=== PATIENT | female | born 1970 | race Caucasian/White ===

== ENCOUNTER 2016-03-06 16:52 | Emergency (ER) | payer OTHER ==
[2016-03-06] MEDS ORDERED: 0.9 % SODIUM CHLORIDE 1,000 ML IV ONE ×2 (17:10→18:14)
[2016-03-06] MEDS ORDERED: ONDANSETRON HCL/PF 4 MG/ 2ML VIAL IVP ONE ×2 (17:10→18:14)
[2016-03-06 17:30] LABS: BASOPHILS % 0.4 (0.0-1.5); EOSINOPHILS % 2.3 % (0.0-6.8); LYMPHOCYTES # 1.9 # k/uL (0.6-4.0); MEAN CORPUSCULAR HEMOGLOBIN 30.7 pg (28.0-34.0); MONOCYTES # 0.4 # k/uL (0.0-0.9); MONOCYTES % 5.4 % (0.0-11.0); NEUTROPHILS # 4.1 # k/uL (1.4-7.7)
--- NOTE | 2016-03-06 17:37 | ED Physician Documentation ---
Nausea/Vomiting/Diarrhea - HISTORIAN Historian: patient - HPI Chief Complaint: Nausea,Vomiting,Diarrhea Onset: days ago (3) Duration: waxing, waning Timing: still present Context: denies: out of country travel, bad food, recent trauma Severity: severe Further Comments: yes (45 year old female patient presents with epigastric and RUQ pain for the past 3 days with nausea and vomiting. Denies fever or diarrhea. States her pain started after eating [place] food on Sunday.) - Associated Symptoms Vomiting: frequent Abdominal Pain: severe (7-8/10), epigastric, RUQ - ROS CONST: none CVS/RESP: denies: chest pain, shortness of breath, cough, dry cough, non- productive cough, productive cough, bloody cough GI/: none EYES/ENT: none MS/SKIN/LYMPH: denies: joint pain, leg swelling, rash NEURO/PSYCH: none - PAST HX Past History: denies: none Other History: other (asthma, COPD, headaches) Surgeries/Procedures: appendectomy, hysterectomy, other (Right knee x 4 arthroscopy, breast augmentation, wisdom teeth extraction. ) Allergies/Adverse Reactions: Allergies Allergy/AdvReac Type Severity Reaction Status Date / Time ketorolac tromethamine Allergy Severe Anaphylaxis Verified 03/06/16 17:38 [From Toradol] Penicillins Allergy Severe Anaphylaxis Verified 03/06/16 17:38 aspirin Allergy Intermediate Rash Verified 03/06/16 17:38 naproxen [From Naprosyn] AdvReac Unknown Vomiting Verified 03/06/16 17:38 Home Medications: Ambulatory Orders Medication Instructions Recorded Chlorpromazine HCl 25 mg PO D 07/08/15 Estradiol [Estrace] 0.5 mg PO D 07/08/15 Tizanidine HCl [Zanaflex] 4 mg PO QID #20 capsule 12/09/15 - SOCIAL HX Smoking History: cigarettes - FAMILY HX Family History: denies: none - VITAL SIGNS Vital Signs: Vital Signs Temp Pulse Resp BP Pulse Ox 97.8 F 100 H 18 140/75 97 03/06/16 16:55 03/06/16 16:55 03/06/16 16:55 03/06/16 16:55 03/06/16 16:55 - REVIEWED ASSESSMENTS Nursing Assessment Reviewed: Yes Vitals Reviewed: Yes Progress - Progress Progress: Lipase send out, will check amylase. 1815 Reviewed xray and lab results with patient, recommended outpatient US to evaluate gallbladder. ED Results Lab/Radiology - Lab Results Lab Results: Lab Results 03/06/16 03/06/16 03/06/16 17:25 17:25 17:25 WBC 6.70 K/ul K/ul (4.00-12.00) RBC 5.08 M/ul M/ul (3.90-5.20) Hgb 15.6 g/dL g/dL (12.0-16.0) Hct 45.5 % % (34.5-46.5) MCV 89.6 fl fl (80.0-100.0) MCH 30.7 pg pg (28.0-34.0) MCHC 34.2 g/dL g/dL (30.0-36.0) RDW 13.2 % % (11.3-14.3) Plt Count 236 K/mm3 K/mm3 (130-400) Neut % (Auto) 61.7 % % (39.0-79.0) Lymph % (Auto) 28.1 % % (16.0-50.0) Kane % (Auto) 5.4 % % (0.0-11.0) Eos % (Auto) 2.3 % % (0.0-6.8) Baso % (Auto) 0.4 (0.0-1.5) Neut # 4.1 # k/uL # k/uL (1.4-7.7) Lymph # 1.9 # k/uL # k/uL (0.6-4.0) Kane # 0.4 # k/uL # k/uL (0.0-0.9) Eos # 0.2 # k/uL # k/uL (0.0-0.6) Baso # 0.0 # k/uL # k/uL (0.0-0.5) Reactive Lymphs % 2.1 % % (0.0-5.0) Reactive Lymphs # 0.1 # k/uL # k/uL (0.0-0.8) Sodium 138 mmol/L mmol/L (136-145) Potassium 3.9 mmol/L mmol/L (3.5-5.0) Chloride 108 mmol/L mmol/L (98-110) Carbon Dioxide 26 mmol/L mmol/L (20-32) BUN 14 mg/dL mg/dL (10-26) Creatinine 0.6 mg/dL mg/dL (0.4-1.5) Estimated Creat Clear 201 Est GFR ( Amer) > 60 (60 - ) Est GFR (Non-Af Amer) > 60 (60 - ) Glucose 141 mg/dL H mg/dL (70-99) Calcium 9.3 mg/dL mg/dL (8.5-10.5) Total Bilirubin 0.4 mg/dL mg/dL (0.2-1.2) AST 32 U/L U/L (0-41) ALT 37 U/L U/L (0-45) Alkaline Phosphatase 111 U/L U/L (46-116) Total Protein 7.7 g/dL g/dL (6.0-8.5) Albumin 5.0 g/dL g/dL (3.0-5.5) Amylase 29 U/L U/L (20-104) - Orders Orders: ED Orders Category Date Time Status Place Saline Lock/IV NOW Care 03/06/16 17:[address] Saline Lock/IV NOW Care 03/06/16 18:14 Inactive AMYLASE Stat Lab 03/06/16 17:25 Completed CBC/PLATELET/DIFF Stat Lab 03/06/16 17:25 Completed CMP Stat Lab 03/06/16 17:25 Completed LIPASE Stat Lab 03/06/16 17:25 Received UA W/MICRO IF INDICATED Stat Lab 03/06/16 17:10 Ordered 0.9 % Sodium Chloride [Normal Saline] 1,000 ml Med 03/06/16 17:10 Discontinued IV NOW 0.9 % Sodium Chloride [Normal Saline] 1,000 ml Med 03/06/16 18:14 Discontinued IV NOW Morphine Sulfate [DepoDUR] Med 03/06/16 17:40 Discontinued 4 mg IVP NOW ONE Ondansetron HCl/Pf [Zofran 4 mg/2 ml] Med 03/06/16 17:10 Discontinued 4 mg IVP NOW ONE Ondansetron HCl/Pf [Zofran 4 mg/2 ml] Med 03/06/16 18:14 Discontinued 4 mg IVP NOW ONE Nausea Physical Exam - EXAM General Appearance: moderate distress EENT: eye inspection normal, no signs of dehydration, CHARLY Respiratory: no resp distress, chest non-tender, breath sounds normal CVS: reg rate & rhythm, heart sounds normal, equal pulses, no murmur, no gallop , PMI nml, no JVD, no friction rub, 24 Abdomen: non-tender, no organomegaly, tenderness (RUQ and epigastric tenderness to palpation. + Gillespie's), guarding. No: McBurney's point tender Skin: normal color, warm/dry, NR, INT, PAL, DR Extremities: non-tender, normal range of motion, no evidence of injury, no edema , J, OFFICE SECRETARY Neuro/Psych: oriented X3, CN's nml as tested, motor nml, sensation nml, mood/ affect nml Discharge Clincal Impression: RUQ pain, Epigastric abdominal pain Referrals: Seema Beckwith MD [Primary Care Provider] - 2 Days Additional Instructions: Diet: Clear liquids Sprite/7-up Juices apple, white grape Gatorade/Powerade Jello Popsicles When tolerating clear liquids, advance to bland diet - such as crackers , rice, bananas or toast. Then [place] diet until results of US are obtained. Return to the emergency department or call your doctor, if you are having severe abdominal pain, fever >101.0, or if there is blood in the vomit or diarrhea, or you cannot keep down liquids or solid food. Fever: Use Tylenol or Ibuprofen as needed per package directions Tylenol 500mg po q4h prn pain Ibuprofen 800mg po TID prn pain - do not take for more than 4 days. Home Medications: Ambulatory Orders Chlorpromazine HCl 25 mg PO D 07/08/15 Estradiol [Estrace] 0.5 mg PO D 07/08/15 Tizanidine HCl [Zanaflex] 4 mg PO QID #20 capsule 12/09/15 Condition: Stable Disposition: 01 HOME, SELF-CARE Decision to Admit: NO Decision Time: 18:20
[2016-03-06] MEDS ORDERED: MORPHINE SULFATE 4 MG/ML DISP.SYRIN IVP ONE (17:40)
[2016-03-06 17:47] LABS: eGFR (African) > 60; eGFR (Non-African) > 60
[2016-03-06 19:50] VITALS: BP 116/60
[2016-03-07 16:11] LABS: LIPASE 30 U/L (13-60)
== END 2016-03-06 18:57 | disposition home or self-care (01) ==
LOC: ED 16:52
DX: R10.9 Unspecified abdominal pain (principal)
CPT/HCPCS: 80053; 82150; 83690; 85025; J2270; J2405; J7030; 96374; 96375; 96376; 99283; S1016

== ENCOUNTER 2016-03-26 14:48 | Emergency (ER) | payer SELFPAY ==
--- NOTE | 2016-03-26 14:55 | ED Physician Documentation ---
General Adult - HISTORIAN Historian: patient - HPI Stated Complaint: wheezing Chief Complaint: General Adult Onset: hours Timing: still present Severity: moderate Further Comments: yes (Pt is a 45 yo female with sore throat and cough that began yesterday. No fever. Pt has hx asthma/copd. Pt used Albuterol at home but without much improvement.) - ROS CONST: other (malaise) EYES/ENT: sore throat CVS/RESP: shortness of breath, cough GI/: none MS/SKIN/LYMPH: none - PAST HX Past History: asthma, COPD Surgeries/Procedures: cholecystectomy, other (appendectomy) Allergies/Adverse Reactions: Allergies Allergy/AdvReac Type Severity Reaction Status Date / Time ketorolac tromethamine Allergy Severe Anaphylaxis Verified 03/26/16 15:06 [From Toradol] Penicillins Allergy Severe Anaphylaxis Verified 03/26/16 15:06 aspirin Allergy Intermediate Rash Verified 03/26/16 15:06 naproxen [From Naprosyn] AdvReac Unknown Vomiting Verified 03/26/16 15:06 Home Medications: Ambulatory Orders Medication Instructions Recorded Chlorpromazine HCl 25 mg PO D 07/08/15 Estradiol [Estrace] 0.5 mg PO D 07/08/15 Tizanidine HCl [Zanaflex] 4 mg PO QID #20 capsule 12/09/15 Promethazine HCl [Phenergan] 25 mg PO Q8H PRN #30 tablet 03/06/16 - SOCIAL HX Smoking History: cigarettes - FAMILY HX Family History: No - VITAL SIGNS Vital Signs: Vital Signs Temp Pulse Resp BP Pulse Ox 116/60 03/06/16 19:47 - REVIEWED ASSESSMENTS Nursing Assessment Reviewed: Yes Vitals Reviewed: Yes Progress - Progress Progress: Solu-medrol 125 mg IM in ER Duoneb HFN in ER improved Continue Albuterol MDI as directed. Rx Prednisone 50 mg. Take one daily for 5 days. Start on 03/27/16. Rx Z-taylor. Use as directed on package. General Adult Physical Exam - PHYSICAL EXAM GENERAL APPEARANCE: mild distress EENT: pharyngeal erythema NECK: normal inspection, supple RESPIRATORY: wheezes CVS: reg rate & rhythm, heart sounds normal ABDOMEN: soft, no organomegaly, normal bowel sounds BACK: normal inspection SKIN: warm/dry, normal color EXTREMITIES: non-tender, normal range of motion, no evidence of injury, no edema NEURO: oriented X3 Discharge Clincal Impression: Asthma Pharyngitis Qualifiers: Pharyngitis/tonsillitis etiology: unspecified etiology Qualified Code(s): J02.9 - Acute pharyngitis, unspecified Referrals: Seema Beckwith MD [Primary Care Provider] - Additional Instructions: Continue Albuterol MDI as directed. Rx Prednisone 50 mg. Take one daily for 5 days. Start on 03/27/16. Rx Z-taylor. Use as directed on package. Home Medications: Ambulatory Orders Chlorpromazine HCl 25 mg PO D 07/08/15 Estradiol [Estrace] 0.5 mg PO D 07/08/15 Tizanidine HCl [Zanaflex] 4 mg PO QID #20 capsule 12/09/15 Promethazine HCl [Phenergan] 25 mg PO Q8H PRN #30 tablet 03/06/16 Condition: Good Disposition: 01 HOME, SELF-CARE Decision to Admit: NO Decision Time: 16:04
[2016-03-26] MEDS ORDERED: methylPREDNISolone SOD SUCC 125 MG/2 ML VIAL IM ONE (15:14)
[2016-03-26] MEDS ORDERED: IPRATROPIUM/ALBUTEROL SULFATE 3 ML AMPUL.NEB NEB ONE (15:14)
[2016-03-26 16:13] VITALS: BP 149/74
--- NOTE | 2016-03-26 16:25 | Diagnostic Imaging Report ---
[facility] [address] [facility].[address] [address] Report Submission Date: Mar 26, 2016 3:52:22 PM ACCOUNTING FILE CLERK Patient Study Name: PAIGE ZALDIVAR Date: Mar 26, 2016 3:42:07 PM ACCOUNTING FILE CLERK Modality Type: CR Gender: F Description: CHEST : 72 Institution: [facility] Physician: ZEB Neff, [place]. History: Shortness of breath. Findings: The heart size is normal. The lungs are clear. There is no pleural effusion or pneumothorax identified. The osseous structures are normal. Impression: 1. No acute pulmonary disease. Electronically signed on Mar 26, 2016 3:52:22 PM ACCOUNTING FILE CLERK by: Connor PHILLIPS
== END 2016-03-26 16:11 | disposition home or self-care (01) ==
LOC: ED 14:48
DX: J45.909 Unspecified asthma, uncomplicated (principal); F17.210 Nicotine dependence, cigarettes, uncomplicated
CPT/HCPCS: 71010; J2930; 87070; 87400; 87880; 94640; 96372; 99283

== ENCOUNTER 2016-03-28 09:26 | Emergency (ER) | payer SELFPAY ==
--- NOTE | 2016-03-28 09:57 | ED Physician Documentation ---
Dyspnea - HISTORIAN Historian: patient - HPI Chief Complaint: Wheezing Associated Symptoms: fever (felt hot). denies: chills Further Comments: yes - ROS CONST: no problems - PAST HX Lung Disease: COPD Cardiac Disease: none Surgeries/Procedures: appendectomy, hysterectomy, other (breast implants, right knee surgery) Allergies/Adverse Reactions: Allergies Allergy/AdvReac Type Severity Reaction Status Date / Time ketorolac tromethamine Allergy Severe Anaphylaxis Verified 03/28/16 10:47 [From Toradol] Penicillins Allergy Severe Anaphylaxis Verified 03/28/16 10:47 aspirin Allergy Intermediate Rash Verified 03/28/16 10:47 naproxen [From Naprosyn] AdvReac Unknown Vomiting Verified 03/28/16 10:47 Home Medications: Ambulatory Orders Medication Instructions Recorded Chlorpromazine HCl 25 mg PO D 07/08/15 Estradiol [Estrace] 0.5 mg PO D 07/08/15 Tizanidine HCl [Zanaflex] 4 mg PO QID #20 capsule 12/09/15 Promethazine HCl [Phenergan] 25 mg PO Q8H PRN #30 tablet 03/06/16 Albuterol Sulfate [Proair Hfa] 8.5 gm IH Q4 PRN #1 hfa.aer.ad 03/28/16 Azithromycin [Zithromax] 250 mg PO DIRECTED #6 tablet 03/28/16 Benzonatate [Tessalon] 100 mg PO TID PRN #15 capsule 03/28/16 Montelukast Sodium [Singulair] 10 mg PO D #30 tablet 03/28/16 - SOCIAL HX Smoking History: less than 1 pack/day Alcohol Use: none Drug Use: none - FAMILY HX Family History: none - VITAL SIGNS Vital Signs: Vital Signs Temp Pulse Resp BP Pulse Ox 149/74 03/26/16 16:12 Progress - Progress Progress: 10:45 Breathing improved. Moving air well ED Results Lab/Radiology - Radiology Radiology Impressions: chest x-ray, no acute finding. Dyspnea Physical Exam - EXAM General Appearance: alert, moderate distress EENT: no signs of dehydration. No: ENT inspection normal, pharynx normal, pharyngeal erythema, dry mucous membranes Neck: nml inspection. No: lymphadenopathy Respiratory: speaks full sentences, respiratory distress (seems to be having a lot of laryngeal wheezing, lungs do not sound to bad but hard to hear.), prolonged expirations, wheezes (best heard in larygnx area). No: retractions, rales, rhonchi CVS: reg. rate & rhythm, no murmur, no gallop, no friction rub, pulses full, pulses equal Skin: color nml, no rash Extremities: non-tender Neuro/Psych: mood/affect nml Discharge Clincal Impression: Bronchitis Prescriptions: Albuterol Sulfate [Proair Hfa] 8.5 gm IH Q4 PRN #1 hfa.aer.ad PRN Reason: DYSPNEA Montelukast Sodium [Singulair] 10 mg PO D #30 tablet Additional Instructions: Drink a lot of fluids. Take Tesselon Perles as needed for cough. Take Azithromycin as directed. If not better in 3-4 days to see your primary care provider. Home Medications: Ambulatory Orders Chlorpromazine HCl 25 mg PO D 07/08/15 Estradiol [Estrace] 0.5 mg PO D 07/08/15 Tizanidine HCl [Zanaflex] 4 mg PO QID #20 capsule 12/09/15 Promethazine HCl [Phenergan] 25 mg PO Q8H PRN #30 tablet 03/06/16 Albuterol Sulfate [Proair Hfa] 8.5 gm IH Q4 PRN #1 hfa.aer.ad 03/28/16 Azithromycin [Zithromax] 250 mg PO DIRECTED #6 tablet 03/28/16 Benzonatate [Tessalon] 100 mg PO TID PRN #15 capsule 03/28/16 Montelukast Sodium [Singulair] 10 mg PO D #30 tablet 03/28/16 Decision to Admit: NO Date of Decison to Admit: 03/28/16 Decision Time: 11:29
[2016-03-28] MEDS ORDERED: IPRATROPIUM/ALBUTEROL SULFATE 3 ML AMPUL.NEB NEB ONE ×2 (10:01)
[2016-03-28 10:47] LABS: BASOPHILS % 0.4 (0.0-1.5); EOSINOPHILS % 2.7 % (0.0-6.8); MEAN CORPUSCULAR HEMOGLOBIN 30.7 pg (28.0-34.0); MONOCYTES # 0.3 # k/uL (0.0-0.9); MONOCYTES % 3.7 % (0.0-11.0); NEUTROPHILS # 5.4 # k/uL (1.4-7.7)
[2016-03-28] MEDS ORDERED: methylPREDNISolone SOD SUCC 125 MG/2 ML VIAL IVP ONE (10:55)
--- NOTE | 2016-03-28 10:57 | Diagnostic Imaging Report ---
[facility] [address] [facility].[address] [address] Report Submission Date: Mar 28, 2016 10:55:27 AM SALES CLOSER Patient Study Name: PAGIE ZALDIVAR Date: Mar 28, 2016 10:21:43 AM SALES CLOSER Modality Type: CR Gender: F Description: CHEST : 72 Institution: [facility] Physician: TEO RHOADES 2 views of the chest History: Dyspnea and cough Findings: Comparison 03/26/2016 Heart is normal in size. There is no focal consolidation, pleural effusion or pneumothorax No acute osseous pathology Impression: No focal consolidation or pleural effusion Electronically signed on Mar 28, 2016 10:55:27 AM SALES CLOSER by: Leela PHILLIPS
[2016-03-28 11:08] LABS: eGFR (African) > 60; eGFR (Non-African) > 60
[2016-03-28 12:05] VITALS: BP 109/63
== END 2016-03-28 11:37 | disposition home or self-care (01) ==
LOC: ED 09:26
DX: J20.9 Acute bronchitis, unspecified (principal); F17.210 Nicotine dependence, cigarettes, uncomplicated
CPT/HCPCS: 71020; 80053; 85025; 99283; J2930

== ENCOUNTER 2016-04-24 00:42 | Emergency (ER) | payer SELFPAY ==
[2016-04-24] MEDS ORDERED: HYDROcodone /APAP 5/325 1 EACH TABLET PO ONE (01:03)
--- NOTE | 2016-04-24 01:11 | ED Physician Documentation ---
Sore Throat/Dental Pain - HPI Stated Complaint: left lower jaw pain Chief Complaint: Dental Pain - ROS CONST: no problems - PAST HX Past History: none Allergies/Adverse Reactions: Allergies Allergy/AdvReac Type Severity Reaction Status Date / Time ketorolac tromethamine Allergy Severe Anaphylaxis Verified 04/24/16 01:00 [From Toradol] Penicillins Allergy Severe Anaphylaxis Verified 04/24/16 01:00 aspirin Allergy Intermediate Rash Verified 04/24/16 01:00 naproxen [From Naprosyn] AdvReac Unknown Vomiting Verified 04/24/16 01:00 Home Medications: Ambulatory Orders Medication Instructions Recorded Estradiol [Estrace] 0.5 mg PO D 07/08/15 Tramadol HCl [Ultram] 50 mg PO Q4H PRN #18 tablet 04/24/16 - SOCIAL HX Smoking History: cigarettes - FAMILY HX Family History: No - VITAL SIGNS Vital Signs: Vital Signs Temp Pulse Resp BP Pulse Ox 98.6 F 109 H 16 173/97 99 04/24/16 00:43 04/24/16 00:43 04/24/16 00:43 04/24/16 00:43 04/24/16 00:43 - REVIEWED ASSESSMENTS Nursing Assessment Reviewed: Yes Vitals Reviewed: Yes ED Results Lab/Radiology - Orders Orders: ED Orders Category Date Time Status HYDROcodone /APAP 5/325 [[place] 5/325] Med 04/24/16 01:03 Once 2 each PO NOW ONE Dental Pain Physical Exam - EXAM General Appearance: alert, moderate distress Head/Neck: head nml inspection, trachea midline, other (left mandible with firm swelling. #21 broken, surrounding gingival erythema) Eyes: eyes nml inspection Mouth/Throat: lips nml, pharynx nml, voice nml, no drooling, no air way problems Ear/Nose: nml inspection Respiratory: no resp. distress Skin: warm/dry, normal color Neuro/Psych: No: weakness Discharge Clincal Impression: Pain due to dental caries Prescriptions: Tramadol HCl [Ultram] 50 mg PO Q4H PRN #18 tablet PRN Reason: Pain Referrals: Seema Beckwith MD [Primary Care Provider] - 2 Days Additional Instructions: Continue the Keflex. See the dentist as soon as possible. Home Medications: Ambulatory Orders Estradiol [Estrace] 0.5 mg PO D 07/08/15 Tramadol HCl [Ultram] 50 mg PO Q4H PRN #18 tablet 04/24/16 Condition: Fair Disposition: 01 HOME, SELF-CARE Decision to Admit: NO Decision Time: 01:03
[2016-04-24 03:01] VITALS: BP 166/91
== END 2016-04-24 02:50 | disposition home or self-care (01) ==
LOC: ED 00:42
DX: K02.9 Dental caries, unspecified (principal)
CPT/HCPCS: 99282; 99283; A9270-GY

== ENCOUNTER 2016-06-05 08:27 | Outpatient (CLI) | payer BC ==
--- NOTE | 2016-06-05 14:26 | Diagnostic Imaging Report ---
JAGUAR AUSTIN [facility] [address] [facility] [address] [address] Report Submission Date: Jun 05, 2016 1:44:31 PM CDT Patient Study Name: PAIGE ZALDIVAR Date: Jun 05, 2016 9:52:00 AM CDT Modality Type: US Gender: F Description: ABD [facility] : 72 Institution: [facility] Physician: JAGUAR AUSTIN - NEEL Ultrasound abdomen limited History: Postprandial pain and nausea Findings: Visualized portions of the pancreas are unremarkable. Moderately increased hepatic parenchymal echogenicity and decreased hepatic through transmission are observed. A 2.5 x 2.5 x 3.6 centimeter hyperechoic lateral segment left hepatic lesion may be present. Alternatively, this is a perihepatic lesion. The right kidney is unremarkable. The gallbladder is normal without stones, wall thickening, or distention. The common bile duct measures 5 mm in diameter and is obscured distally. Impression: 1. Moderate hepatic steatosis. 2. Unremarkable common bile duct and gallbladder. 3. Equivocal 3.6 cm hyperechoic left hepatic lesion. Recommend triple phase computed tomography of the abdomen for further evaluation. Electronically signed on Jun 05, 2016 1:44:31 PM CDT by: Sanya PHILLIPS
== END 2016-06-05 08:30 ==
LOC: RAD 08:27
PROVIDERS: ATTEND Family Medicine
DX: R10.11 Right upper quadrant pain (principal)
CPT/HCPCS: 76705

== ENCOUNTER 2016-09-03 17:40 | Emergency (ER) | payer SELFPAY ==
[2016-09-03] MEDS: IBUPROFEN 200 MG TABLET PO ONE (19:13)
[2016-09-03] MEDS: traMADol HCL 50 MG TABLET PO ONE (19:14)
[2016-09-03] MEDS: ORPHENADRINE CITRATE 100 MG TAB PO ONE (19:19)
[2016-09-03] MEDS ORDERED: ORPHENADRINE CITRATE 60 MG/2ML ONE (19:53)
[2016-09-03] MEDS: ORPHENADRINE CITRATE 60 MG/2ML IM ONE (20:05)
--- NOTE | 2016-09-03 20:08 | ED Physician Documentation ---
Fall - HISTORIAN Historian: patient - HPI Stated Complaint: low back pain after fall Chief Complaint: Fall Additional Information: tripped opver dog fell several flights stairs-severe low back pain Onset: today (1729) Where: home Context: tripped, lost balance r: moderate Associated Symptoms:: no loss of consciousness Location of Pain/Injury: denies: head, neck, upper back, mid back - ROS CONST: no problems NEURO: other (pos slr 15 deg) EYES/ENT: none CVS/RESP: none GI/: denies: nausea, vomiting - PAST HX Past History: asthma, COPD Allergies/Adverse Reactions: Allergies Allergy/AdvReac Type Severity Reaction Status Date / Time ketorolac tromethamine Allergy Severe Anaphylaxis Verified 09/03/16 18:59 [From Toradol] Penicillins Allergy Severe Anaphylaxis Verified 09/03/16 18:59 aspirin Allergy Intermediate Rash Verified 09/03/16 18:59 naproxen [From Naprosyn] AdvReac Unknown Vomiting Verified 09/03/16 18:59 Home Medications: Ambulatory Orders Medication Instructions Recorded Estradiol [Estrace] 0.5 mg PO D 07/08/15 Topiramate [Topamax] 09/03/16 - SOCIAL HX Smoking History: less than 1 pack/day Alcohol Use: none Drug Use: none - FAMILY HX Family History: no significant history - VITAL SIGNS Vital Signs: Vital Signs Temp Pulse Resp BP Pulse Ox 98 F 75 18 111/57 97 09/03/16 17:45 09/03/16 17:45 09/03/16 17:45 09/03/16 17:45 09/03/16 17:45 - REVIEWED ASSESSMENTS Nursing Assessment Reviewed: Yes Vitals Reviewed: Yes ED Results Lab/Radiology - Radiology Radiology Impressions: no fx - Orders Orders: ED Orders Category Date Time Status LUMBAR SPINE WITH OBLIQUES [L SPINE 4 VIEWS] [RAD] Stat Exams 09/03/16 Ordered Ibuprofen [Advil] Med 09/03/16 18:59 Once 600 mg PO NOW ONE Orphenadrine Citrate [Norflex] Med 09/03/16 18:59 Once 50 mg PO 1T ONE traMADol HCL [Ultram] Med 09/03/16 19:01 Once 50 mg PO NOW ONE Fall Physical Exam - Physical Exam General Appearance: moderate distress Head: non-tender, no swelling Neck: non-tender, painless ROM Eye: CHARLY Resp/CVS: chest non-tender, breath sounds nml, no resp. distress, heart sounds nml Abdomen: soft, non-tender Neuro: oriented x3, sensation nml, motor nml, mood/affect nml Skin: color nml, no rash, other (eyes watering and red "from crying"). No: cyanosis, diaphoresis, pallor, ecchymosis Back: CVA tenderness (R), CVA tenderness (L), muscle spasm Extremities: atraumatic Joint: joints nml - [place] Coma Score Eyes Open: Spontaneous Speech: Oriented Motor: Obeys Commands Discharge Clincal Impression: fall w/ low back pain Referrals: Seema Beckwith MD [Primary Care Provider] - 2 Days Additional Instructions: home meds no lifting or bending-f/u w/pcp Home Medications: Ambulatory Orders Estradiol [Estrace] 0.5 mg PO D 07/08/15 Topiramate [Topamax] 09/03/16 Comments: sig improved w/meds Condition: Good Disposition: 01 HOME, SELF-CARE Decision to Admit: NO Decision Time: 20:07
[2016-09-03 20:42] VITALS: BP 113/59
--- NOTE | 2016-09-04 06:43 | Diagnostic Imaging Report ---
KETTY RUBIN~ [facility] [address] [facility].[address] [address] ~ ~ ~ ~ Report Submission Date: Sep 03, 2016 7:31:37 PM CDT Patient ~ Study Name: PAIGE ZALDIVAR ~ Date: Sep 03, 2016 7:11:27 PM CDT ~ Modality Type: CR Gender: F ~ Description: SPINE : 72 ~ Institution: [facility] Physician: KETTY RUBIN ~ ~ ~ ~ lumbar spine total 5 views Clinical history: Low back pain after history of fall Mild marginal spurring along the lumbar spine. No visible fractures, dislocation or bone destruction. Disc spaces are well maintained. Impression: Mild lumbar spondylosis without visible fractures or bone destruction ~ Electronically signed on Sep 03, 2016 7:31:37 PM CDT by: Gregg PHILLIPS
== END 2016-09-03 20:13 | disposition home or self-care (01) ==
LOC: ED 17:40
DX: M54.5 Low back pain (principal); W10.8XXA Fall (on) (from) other stairs and steps, initial encounter; Y93.9 Activity, unspecified; Y99.9 Unspecified external cause status
CPT/HCPCS: 72110; J2360; 96372; 99283

== ENCOUNTER 2016-09-22 16:52 | Emergency (ER) | payer SELFPAY ==
--- NOTE | 2016-09-22 18:22 | ED Physician Documentation ---
Upper Extremity Injury - HISTORIAN Historian: patient - HPI Chief Complaint: Upper Extremity Injury Onset: just prior to arrival Where: home Severity: moderate Duration: persistent since Context: blow (car door hit against it) Further Comments: yes (patient states that she was getting out of her car when her dog jumped onto the car door and causes to slam on her wrist.) - ROS CONST: no problems. denies: fever, chills - PAST HX Past History: Rt handed, COPD, other (asthma) Allergies/Adverse Reactions: Allergies Allergy/AdvReac Type Severity Reaction Status Date / Time ketorolac tromethamine Allergy Severe Anaphylaxis Verified 09/03/16 18:59 [From Toradol] Penicillins Allergy Severe Anaphylaxis Verified 09/03/16 18:59 aspirin Allergy Intermediate Rash Verified 09/03/16 18:59 naproxen [From Naprosyn] AdvReac Unknown Vomiting Verified 09/03/16 18:59 Home Medications: Ambulatory Orders Medication Instructions Recorded Estradiol [Estrace] 0.5 mg PO D 07/08/15 Topiramate [Topamax] 09/03/16 HYDROcodone /APAP 5/325 [[place] 1 each PO Q6 PRN #15 tablet 09/22/16 5/325] - SOCIAL HX Smoking History: less than 1 pack/day (1/2 ppd) Alcohol Use: none Drug Use: none - FAMILY HX Family History: no significant history, other (cancer) - VITAL SIGNS Vital Signs: Vital Signs Temp Pulse Resp BP Pulse Ox 86 20 113/59 97 09/22/16 19:30 09/22/16 19:30 09/03/16 20:20 09/22/16 19:30 - REVIEWED ASSESSMENTS Nursing Assessment Reviewed: Yes Vitals Reviewed: Yes ED Results Lab/Radiology - Orders Orders: ED Orders Category Date Time Status Cock-Up Splint 1T Care 09/22/16 18:30 Active WRIST 3 VIEWS OR MORE [RAD] Stat Exams 09/22/16 Completed Upper Extremity Injury Physic - Physical Exam General Appearance: alert, mild distress Hand: normal inspection Wrist: limited ROM, pain (with flexionand extension), soft tissue tenderness Elbow/Forearm: normal inspection Neuro/Vascular/Tendon: no vascular compromise, motor nml, sensation nml Skin: warm,dry Discharge Clincal Impression: Contusion Qualifiers: Encounter type: initial encounter Contusion area: hand Laterality: right Qualified Code(s): S60.221A - Contusion of right hand, initial encounter Prescriptions: HYDROcodone /APAP 5/325 [[place] 5/325] 1 each PO Q6 PRN #15 tablet PRN Reason: Pain Referrals: Seema Beckwith MD [Primary Care Provider] - 2 Days Additional Instructions: Keep a cool compress to the area, wear the cock-up splint for the next several days for comfort measures. Take hydrocodone as needed for pain. Home Medications: Ambulatory Orders Estradiol [Estrace] 0.5 mg PO D 07/08/15 Topiramate [Topamax] 09/03/16 HYDROcodone /APAP 5/325 [[place] 5/325] 1 each PO Q6 PRN #15 tablet 09/22/16 Condition: Good Disposition: 01 HOME, SELF-CARE Decision to Admit: NO Date of Decison to Admit: 09/22/16 Decision Time: 18:33
--- NOTE | 2016-09-22 18:25 | ED Physician Documentation ---
Upper Extremity Injury - PAST HX Allergies/Adverse Reactions: Allergies Allergy/AdvReac Type Severity Reaction Status Date / Time ketorolac tromethamine Allergy Severe Anaphylaxis Verified 09/03/16 18:59 [From Toradol] Penicillins Allergy Severe Anaphylaxis Verified 09/03/16 18:59 aspirin Allergy Intermediate Rash Verified 09/03/16 18:59 naproxen [From Naprosyn] AdvReac Unknown Vomiting Verified 09/03/16 18:59 Home Medications: Ambulatory Orders Medication Instructions Recorded Estradiol [Estrace] 0.5 mg PO D 07/08/15 Topiramate [Topamax] 09/03/16 - VITAL SIGNS Vital Signs: Vital Signs Temp Pulse Resp BP Pulse Ox 113/59 09/03/16 20:20 Discharge Referrals: Seema Beckwith MD [Primary Care Provider] - 2 Days Home Medications: Ambulatory Orders Estradiol [Estrace] 0.5 mg PO D 07/08/15 Topiramate [Topamax] 09/03/16
--- NOTE | 2016-09-22 19:04 | Diagnostic Imaging Report ---
VERONA BRUCE [facility] [address] [facility].[address] [address] Report Submission Date: Sep 22, 2016 6:23:14 PM CDT Patient Study Name: PAIGE ZALDIVAR Date: Sep 22, 2016 5:54:35 PM CDT Modality Type: CR Gender: F Description: UPPER EXTREMITY : 72 Institution: [facility] Physician: VERONA BRUCE Examination: Plain film wrist History: Wrist injury Comparison exams: None available Findings: 3 views the wrist demonstrate normal cortical margins. No fracture. No dislocation. No soft tissue abnormality. Impression: No osseous abnormality Electronically signed on Sep 22, 2016 6:23:14 PM CDT by: Azar PHILLIPS
== END 2016-09-22 18:45 | disposition home or self-care (01) ==
LOC: ED 16:52
DX: S60.221A Contusion of right hand, initial encounter (principal); X58.XXXA Exposure to other specified factors, initial encounter; Y93.9 Activity, unspecified; Y99.9 Unspecified external cause status
CPT/HCPCS: 73110; L3908; 99283

== ENCOUNTER 2016-12-08 04:22 | Emergency (ER) | payer SELFPAY ==
[2016-12-08] MEDS: NALBUPHINE HCL 10 MG/1 ML IM ONE (04:37)
--- NOTE | 2016-12-08 04:37 | ED Physician Documentation ---
Sore Throat/Dental Pain - HISTORIAN Historian: patient - HPI Stated Complaint: Dog hit her in Lt lower jaw, knocked part of tooth out, pain in jaw Chief Complaint: Dental Pain Onset: hours Context: Fractured Tooth, Abscess Further Comments: yes (46 year old female patient presents with complaint of tooth pain, left lower molar. Patient states her dog hit her mouth, rates pain 9/10.) - ROS CONST: no problems CVS/RESP: none GI/: denies: nausea, vomiting NEURO/PSYCH: none - PAST HX Past History: gum disease Other History: other (UTI) Allergies/Adverse Reactions: Allergies Allergy/AdvReac Type Severity Reaction Status Date / Time ketorolac tromethamine Allergy Severe Anaphylaxis Verified 12/08/16 04:30 [From Toradol] Penicillins Allergy Severe Anaphylaxis Verified 12/08/16 04:30 aspirin Allergy Intermediate Rash Verified 12/08/16 04:30 naproxen [From Naprosyn] AdvReac Unknown Vomiting Verified 12/08/16 04:30 Home Medications: Ambulatory Orders Medication Instructions Recorded Estradiol [Estrace] 0.5 mg PO D 07/08/15 Ciprofloxacin HCl [Cipro] 12/08/16 Clindamycin HCl [Cleocin] 300 mg PO QID #28 capsule 12/08/16 - SOCIAL HX Smoking History: cigarettes - FAMILY HX Family History: No - VITAL SIGNS Vital Signs: Vital Signs Temp Pulse Resp BP Pulse Ox 98.3 F 94 H 18 131/68 99 12/08/16 04:22 12/08/16 04:22 12/08/16 04:22 12/08/16 04:22 12/08/16 04:22 - REVIEWED ASSESSMENTS Nursing Assessment Reviewed: Yes Vitals Reviewed: Yes ED Results Lab/Radiology - Orders Orders: ED Orders Category Date Time Status Nalbuphine HCl [Nubain] Med 12/08/16 04:36 Once 10 mg IM NOW ONE Dental Pain Physical Exam - EXAM General Appearance: moderate distress Head/Neck: head nml inspection Mouth/Throat: lips nml, gums nml, gum swelling around teeth, widespread dental decay, other (multiple missing teeth. Molar #35 with decay to gumline, old fracture, no new fracture. Gum around tooth with erythema and edema. ) Respiratory: no resp. distress CVS: reg. rate & rhythm Skin: warm/dry, normal color Neuro/Psych: No: weakness Discharge Clincal Impression: Pain due to dental caries, Dental abscess Prescriptions: Clindamycin HCl [Cleocin] 300 mg PO QID #28 capsule Referrals: Seema Beckwith MD [Primary Care Provider] - 2 Days Additional Instructions: Dental Pain Ibuprofen 800mg every 8 hours x 3 days Tylenol 650-1000mg every 4 hours as needed for pain, limit your dose to 4G in 24 hours. Over the counter DenTek - follow package directions. 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 See your dentist as soon as possible Condition: Stable Disposition: 01 HOME, SELF-CARE Decision to Admit: NO Decision Time: 04:37
[2016-12-08 05:22] VITALS: BP 121/78
== END 2016-12-08 04:50 | disposition home or self-care (01) ==
LOC: ED 04:22
DX: K02.9 Dental caries, unspecified (principal); K04.7 Periapical abscess without sinus
CPT/HCPCS: 96372; 99283; J2300

== ENCOUNTER 2016-12-18 13:36 | Emergency (ER) | payer SELFPAY ==
--- NOTE | 2016-12-18 13:47 | ED Physician Documentation ---
General Adult - HISTORIAN Historian: patient - HPI Stated Complaint: headache Chief Complaint: General Adult Onset: hours Timing: still present Severity: moderate Further Comments: yes (Pt is a 46 yo female with a headache that started earlier today. Pt has hx migraines and has had a headache like this in the past. Pt did have some sinus tenderness earlier also, and is finishing a course of abx.) - ROS CONST: no problems EYES/ENT: none CVS/RESP: none GI/: none MS/SKIN/LYMPH: none NEURO/PSYCH: headache - PAST HX Past History: other (appendectomy, cholecystectomy, hysterectomy, ortho surgery) Allergies/Adverse Reactions: Allergies Allergy/AdvReac Type Severity Reaction Status Date / Time ketorolac tromethamine Allergy Severe Anaphylaxis Verified 12/18/16 13:54 [From Toradol] Penicillins Allergy Severe Anaphylaxis Verified 12/18/16 13:54 aspirin Allergy Intermediate Rash Verified 12/18/16 13:54 naproxen [From Naprosyn] AdvReac Unknown Vomiting Verified 12/18/16 13:54 Home Medications: Ambulatory Orders Medication Instructions Recorded Estradiol [Estrace] 0.5 mg PO D 07/08/15 Zolpidem Tartrate [Ambien] 10 mg PO HS 12/18/16 - SOCIAL HX Smoking History: cigarettes - FAMILY HX Family History: No - VITAL SIGNS Vital Signs: Vital Signs Temp Pulse Resp BP Pulse Ox 121/78 12/08/16 05:20 - REVIEWED ASSESSMENTS Nursing Assessment Reviewed: Yes Vitals Reviewed: Yes Progress - Progress Progress: Nubain 10 mg IM Vistarail 50 mg IM improved consider nasal washes for sinusitis. General Adult Physical Exam - PHYSICAL EXAM GENERAL APPEARANCE: moderate distress EENT: pharynx normal NECK: normal inspection, supple RESPIRATORY: no resp distress, chest non-tender, breath sounds normal CVS: reg rate & rhythm, heart sounds normal ABDOMEN: soft, no organomegaly, normal bowel sounds BACK: normal inspection, no CVA tenderness SKIN: warm/dry, normal color EXTREMITIES: non-tender, normal range of motion, no evidence of injury NEURO: oriented X3, CN's nml as tested, motor nml, sensation nml Discharge Clincal Impression: Headache Qualifiers: Headache type: unspecified Headache chronicity pattern: episodic headache Intractability: not intractable Qualified Code(s): R51 - Headache Referrals: Seema Beckwith MD [Primary Care Provider] - Condition: Good Disposition: 01 HOME, SELF-CARE Decision to Admit: NO Decision Time: 15:31
[2016-12-18] MEDS: NALBUPHINE HCL 10 MG/1 ML IM STA (14:01)
[2016-12-18] MEDS: hydrOXYzine HCL 50 MG/ML VIAL IM STA (15:14)
[2016-12-18 15:38] VITALS: BP 131/81
== END 2016-12-18 15:33 | disposition home or self-care (01) ==
LOC: ED 13:36
DX: R51 Headache (principal)
CPT/HCPCS: J2300; J3410; 96372; 99283

== ENCOUNTER 2017-02-06 18:23 | Emergency (ER) | payer SELFPAY ==
--- NOTE | 2017-02-06 18:36 | ED Physician Documentation ---
General Adult - HISTORIAN Historian: patient - HPI Stated Complaint: tail bone low back pain, fall Chief Complaint: Lower Extremity Problem Additional Information: 46-year-old white female who states that while she was walking down the stairs her daughter got tangled up in her feet and she fell landing on her buttocks. Patient has some immediate pain is cognitive theory and lower lumbar area. Patient denies any numbness or weakness to the lower extremities. Patient denies any previous injury other than a coccyx contusion a number of years ago. Patient does have some pain with ambulation. Onset: minutes (45 minutes) Timing: still present Severity: moderate - ROS CONST: no problems EYES/ENT: none - PAST HX Past History: COPD, other (asthma) Surgeries/Procedures: hysterectomy, other (appendectomy, breast augmentaion, 4 right knee surgeries) - SOCIAL HX Smoking History: less than 1 pack/day (03/07 ppd) Alcohol Use: none Drug Use: none - FAMILY HX Family History: No - VITAL SIGNS Vital Signs: Vital Signs Temp Pulse Resp BP Pulse Ox 97.4 F L 91 H 20 114/64 97 02/06/17 18:23 02/06/17 18:23 02/06/17 18:23 02/06/17 18:23 02/06/17 18:23 - REVIEWED ASSESSMENTS Nursing Assessment Reviewed: Yes Vitals Reviewed: Yes <Gregg Haynes - Last Filed: 02/06/17 18:34> - VITAL SIGNS Vital Signs: Vital Signs Temp Pulse Resp BP Pulse Ox 97.4 F L 91 H 20 114/64 97 02/06/17 18:23 02/06/17 18:23 02/06/17 18:23 02/06/17 18:23 02/06/17 18:23 <Jhoan More - Last Filed: 02/06/17 19:30> - PAST HX Allergies/Adverse Reactions: Allergies Allergy/AdvReac Type Severity Reaction Status Date / Time ketorolac tromethamine Allergy Severe Anaphylaxis Verified 02/06/17 18:34 [From Toradol] Penicillins Allergy Severe Anaphylaxis Verified 02/06/17 18:34 aspirin Allergy Intermediate Rash Verified 02/06/17 18:34 naproxen [From Naprosyn] AdvReac Unknown Vomiting Verified 02/06/17 18:34 Home Medications: Ambulatory Orders Medication Instructions Recorded Zolpidem Tartrate [Ambien] 10 mg PO HS 12/18/16 Progress - Progress Progress: x-ray LS spine: No vertebral body compression deformity. x-ray coccyx: No acute osseous process. D/c home. Tylenol. Warm compresses. <Jhoan More - Last Filed: 02/06/17 19:30> ED Results Lab/Radiology - Orders Orders: ED Orders Category Date Time Status L SPINE 2 OR 3 VIEWS [RAD] Stat Exams 02/06/17 Completed SACRUM & COCCYX 2 VIEW+ [RAD] Stat Exams 02/06/17 Completed <Jhoan oMre - Last Filed: 02/06/17 19:30> General Adult Physical Exam - PHYSICAL EXAM GENERAL APPEARANCE: moderate distress NECK: normal inspection, supple RESPIRATORY: no resp distress, chest non-tender, breath sounds normal. No: wheezes, rales, rhonchi BACK: no CVA tenderness, other (tenderness over the L4,5 area and sacral coccyx area. ) SKIN: warm/dry, normal color EXTREMITIES: non-tender, normal range of motion NEURO: oriented X3, CN's nml as tested, motor nml, sensation nml, mood/affect nml, cognition normal <Gregg Haynes - Last Filed: 02/06/17 18:34> Discharge <Gregg Haynes - Last Filed: 02/06/17 18:34> Decision to Admit: NO Decision Time: 19:27 <Jhoan More - Last Filed: 02/06/17 19:30> Clincal Impression: fall, contusion Referrals: Seema Beckwith MD [Primary Care Provider] - Condition: Good Disposition: 01 HOME, SELF-CARE
--- NOTE | 2017-02-06 19:24 | Diagnostic Imaging Report ---
[facility] [address] [facility].[address] [address] Report Submission Date: Feb 06, 2017 7:22:34 PM TAX EXAMINING TECHNICIAN Patient Study Name: PAIGE ZALDIVAR Date: Feb 06, 2017 6:52:46 PM TAX EXAMINING TECHNICIAN Modality Type: CR Gender: F Description: SPINE : 72 Institution: [facility] Physician: VERONA BRUCE Examination: Plain film lumbar spine History: Injury Findings: 3 views of the lumbar spine demonstrate normal height. No anterior compression. Few anterior osteophytes. No soft tissue abnormalities. Impression: No vertebral body compression deformity. Electronically signed on Feb 06, 2017 7:22:34 PM TAX EXAMINING TECHNICIAN by: Azar PHILLIPS
--- NOTE | 2017-02-06 19:25 | Diagnostic Imaging Report ---
[facility] [address] [facility].[address] [address] Report Submission Date: Feb 06, 2017 7:23:26 PM CHIEF DESIGN ENGINEER Patient Study Name: PAIGE ZALDIVAR Date: Feb 06, 2017 6:54:10 PM CHIEF DESIGN ENGINEER Modality Type: CR Gender: F Description: SPINE : 72 Institution: [facility] Physician: VERONA BRUCE Examination: Plain film sacrum/coccyx History: Discomfort Comparison exams: None provided Findings: 3 view of the sacrum/coccyx demonstrate normal cortical margins. Sacral figueroa are symmetric. No fracture. Sacroiliac joints are without evidence for fracture or fusion. Superior and inferior pubic rami and iliac wings, as visualized, are without abnormality. No abnormal angulation of the coccyx on lateral view. Impression: No acute osseous process. Electronically signed on Feb 06, 2017 7:23:26 PM CHIEF DESIGN ENGINEER by: Azar PHILLIPS
[2017-02-06 19:35] VITALS: BP 111/60
== END 2017-02-06 19:30 | disposition home or self-care (01) ==
LOC: ED 18:23
DX: S30.0XXA Contusion of lower back and pelvis, initial encounter (principal); W19.XXXA Unspecified fall, initial encounter; Y93.9 Activity, unspecified; Y99.9 Unspecified external cause status
CPT/HCPCS: 72100; 72220; 99283